=== PATIENT | female | born 1950 | race Caucasian/White ===

== ENCOUNTER 2018-09-30 17:57 | Inpatient (IN) | payer OTHER, BC ==
[~2018-09-30] VITALS: Ht 162.6 cm; Wt 54.0 kg
[2018-09-30 17:57] VITALS: BP_SYST 124
[~2018-09-30 17:57] MED LIST: CARB-61 GT; DEXT1CAP3 GT; DEXT1CAP3 PO; DIME25TA2 PO; DONE10TA44 GT; ESCI10TA GT; ESCI5SOL PO; ESOM20CA33 PO; ESOM40CA PO; HYDR473S49 PO; LACT-200 PO; LEVE1000 PO; OLAN2.5T29 PO; SCOP1PAT TD; SEPTRA DS PO
--- NOTE | 2018-09-30 17:57 | NUR ---
BROUGHT IN BY [facility] FROM [facility]. I CALLED TO [facility] TO GET REPORT, SPOKE WITH JUSTYN. PT PLACED IN BED #2 AND TRIAGED. PT IS NON-VERBAL. REPORT GIVEN TO SHAKA
--- NOTE | 2018-09-30 18:00 | NUR ---
Patient arrived by BLS from SNF. Patient c/c of pain to right lower extremity. Patient sustained fall on 09/25, right lower extremity deformity and swelling. Family originally declined to patient to be seen in ER, Fx tib/fib to right side. Family was okay with transfer.
--- NOTE | 2018-09-30 18:15 | NUR ---
ER at bedside examining patient.
[2018-09-30 19:00] LABS: BASOPHILS % (AUTO) 0.3 % (0.0-2.0); EOSINOPHILS # (AUTO) 0.1 K/uL (0.0-0.4); EOSINOPHILS % (AUTO) 1.5 % (0.0-4.0); HEMATOCRIT 31.5 % (36-48); HEMOGLOBIN 10.2 g/dL (12.0-16.0); LYMPHOCYTES # (AUTO) 1.3 K/uL (1.0-5.5); LYMPHOCYTES % (AUTO) 24.5 % (20.5-51.5); MEAN CORPUSCULAR HEMOGLOBIN 29 pg (27-31); MEAN CORPUSCULAR HGB CONC 32 % (32-36); MEAN CORPUSCULAR VOLUME 89 fL (79.0-98.0); MONOCYTES # (AUTO) 0.5 K/uL (0.0-1.0); MONOCYTES % (AUTO) 8.9 % (1.7-9.3); NEUTROPHILS # (AUTO) 3.5 K/uL (1.8-7.7); NEUTROPHILS % (AUTO) 64.8 % (40.0-70.0); PLATELET COUNT (AUTO) 217 K/uL (130-430); RED BLOOD CELL COUNT(AUTO) 3.55 MIL/uL (4.2-6.2); RED CELL DISTRIBUTION WIDTH 12.9 % (9.0-15.0); WHITE BLOOD COUNT (AUTO) 5.4 K/uL (4.8-10.8)
[2018-09-30 19:03] LABS: CALCIUM 8.8 mg/dL (8.4-11.0); CREATININE 0.52 mg/dL (0.55-1.30); POTASSIUM 3.7 mmol/L (3.5-5.1)
--- NOTE | 2018-09-30 19:09 | NUR ---
Endorsed care to VIDYA Jeronimo.
[2018-09-30 19:10] LABS: ALBUMIN 2.3 g/dL (3.4-4.8); TOTAL BILIRUBIN 0.6 mg/dL (0.0-1.0)
[2018-09-30] MEDS ORDERED: ACET-2165 GT (19:55)
[2018-09-30] MEDS ORDERED: DEXT1CAP3 GT (19:55)
[2018-09-30] MEDS ORDERED: DOCU250C14 GT (19:55)
--- NOTE | 2018-09-30 20:00 | NUR ---
Patient will be admitted to care of Dr Almaraz. Admitted to MS unit. Will go to room 113-B. Belongings list completed. Summary report printed. Report will be given at bedside. Transfer to [facility]. IV present no sign or symptom of infiltration.
--- NOTE | 2018-09-30 20:25 | NUR ---
Patient taken to floor in stable condition.
[2018-09-30 20:31] VITALS: BP_SYST 123
--- NOTE | 2018-09-30 20:31 | NUR ---
ADMISSION NOTE Received patient from ER via idania, received report from VIDYA VILLARREAL. Patient admitted with diagnosis of ACUTE FRACTURE OF RIGHT TIBIA. Patient oriented to hospital routine, call light, toileting and safety-patient verbalized understanding.
--- NOTE | 2018-09-30 20:31 | NUR ---
ADMIT NOTE Received pt from ER to the floor with a diagnosis of ACUTE FRACTURE OF RIGHT TIBIA. Admission process initiated. patient oriented to pain management, safety and call light-PT is non verbal, not following command done.
--- NOTE | 2018-09-30 22:28 | NUR ---
SKIN CARE PHOTOS Patient has impaired skin to right lower extremity and left upper extremity due to disease process. Photos were taken and will be mounted on wound care photographic wound forms.
[2018-09-30 23:45] VITALS: BP_SYST 130
[2018-10-01] MEDS ORDERED: HYDROcodone/ACETAMIN 5-325 MG TAB (NORCO/ VICODIN) PO PRN
[2018-10-01] MEDS ORDERED: levETIRAcetam 500 MG TABLET PO SCH ×2
[2018-10-01] MEDS ORDERED: ACETAMINOPHEN 325 MG TABLET GT PRN
[2018-10-01] MEDS ORDERED: COMMUNICATION ORDER XX ONE (00:30)
--- NOTE | 2018-10-01 00:37 | NUR ---
SPOKE TO DR. ALMARAZ Made aware to Dr. Almaraz that pt is on G-Tube. Dr. Almaraz ordered NPO and to start Jevity 1.2 at 238ml bolus 5 times a day. To start IVF D5 1/2 NS with 20mEq Potassium Chloride at 75ml/hr. To start Fisher Catheter and to use G-Tube as route for patient's PO medication. Read back orders and was confirmed by Dr. Almaraz.
--- NOTE | 2018-10-01 01:10 | NUR ---
BROWN INSERTION Inserted brown catheter and pt tolerated well. Noted yellow urine passing through the tube and UA was collected and sent to the lab.
--- NOTE | 2018-10-01 01:50 | NUR ---
G-TUBE FEEDING STARTED Bowel sounds are active. Started G-Tube feeding with Jevity 1.2 at 238ml bolus. Pt tolerated well with residual of 20ml. Aspiration precaution maintained. Will continue to monitor.
[2018-10-01] MEDS: KCL 20 mEq in D5/0.45NS 1000mL 1,000 ML IV SCH ×2 (01:53→17:22)
[2018-10-01] MEDS ORDERED: LevETIRAcetam 500 MG/5 ML UDC ORAL LIQUID GT SCH (02:15)
[2018-10-01] MEDS: CARBIDOPA/LEVODOPA 25/100 MG TABLET GT SCH ×5 (02:24→21:43)
[2018-10-01] MEDS ORDERED: levETIRAcetam 500 MG TABLET GT SCH ×2 (02:30→09:00)
[2018-10-01 02:33] LABS: BILIRUBIN,URINE NEGATIVE (NEGATIVE); BLOOD, URINE 3+ (NEGATIVE); CLARITY/URINE HAZY (CLEAR); COLOR,URINE YELLOW (YELLOW); GLUCOSE,URINE NEGATIVE (NEGATIVE); KETONES,URINE NEGATIVE (NEGATIVE); LEUKOCYTE ESTERASE ,URINE 1+ (NEGATIVE); NITRITE, URINE NEGATIVE (NEGATIVE); PH,URINE 7.5 (5.0-8.0); PROTEIN URINE 2+ (NEGATIVE)
[2018-10-01] MEDS ORDERED: levETIRAcetam 500 MG TABLET GT ONE (02:55)
[2018-10-01 02:56] LABS: RBC,URINE 20-50 /HPF (0-3)
[2018-10-01 02:59] LABS: BACTERIA,URINE MODERATE /HPF (None Seen)
[2018-10-01 03:03] LABS: MUCUS,URINE None Seen /LPF (None Seen); YEAST,URINE None Seen /HPF (None Seen)
--- NOTE | 2018-10-01 03:18 | NUR ---
CALLED [facility] () TO REQUEST FLU VACCINATION STATUS Spoke to MERCEDES Oconnor from [facility] ([phone]) who stated that that patient's medical records state she received the flu vaccine on August 21, 2018.
--- NOTE | 2018-10-01 06:20 | NUR ---
G-TUBE FEEDING Bowel sounds are active. Second bolus of G-Tube feeding of 238ml of Jevity 1.2 started. Pt tolerated well with residual of 10 ml. Aspiration precaution maintained. Will continue to monitor.
--- NOTE | 2018-10-01 07:00 | NUR ---
CLOSING NOTES Pt is resting with both eyes closed. With visible chest rise and fall noted. All care plans attended and safety precautions maintained throughout the shift. Will endorse to morning shift nurse.
[2018-10-01 08:00] VITALS: BP_SYST 142
--- NOTE | 2018-10-01 08:00 | NUR ---
Patient opens eyes. Appears contracted. IV site on right hand, #20. Has F/C, draining yellow urine. Heel protector on the left foot.
--- NOTE | 2018-10-01 08:28 | NUR ---
Nutrition Update Nick Scale 12 noted. Pt admitted for acute fracture of R tibia Diet: tube feeding BMI: 20.4 kg/m2 RD to follow per nutrition care standards.
[2018-10-01] MEDS ORDERED: ACETAMINOPHEN 650 MG/20.3 ML UDC GT PRN (08:32)
[2018-10-01] MEDS ORDERED: HYDROcodone/ACETAMIN 5-325 MG TAB (NORCO/ VICODIN) GT PRN (08:33)
[2018-10-01] MEDS: CITALOPRAM HYDROBROMIDE 20 MG TABLET GT SCH (08:51)
[2018-10-01] MEDS: DOCUSATE SODIUM 100 MG/10 ML UDC GT SCH (08:51)
[2018-10-01] MEDS ORDERED: DOCUSATE SODIUM 100 MG CAPSULE PO SCH (09:00)
--- NOTE | 2018-10-01 10:10 | NUR ---
NEW IV IS INSERTED AT RIGHT FA, #20, INTACT AND PATENT.
[2018-10-01 12:06] VITALS: BP_SYST 142
--- NOTE | 2018-10-01 12:22 | NUR ---
PATIENT IS RESTING, NO SIGNS OF DISTRESS NOTED.
--- NOTE | 2018-10-01 13:49 | NUR ---
Dietitian Recommendations *Recommend Jevity 1.2 at 50ml/hr, FWF 110ml q 6h via GT. Provides: 1440 kcal, 67 gm protein and 1408 ml free water. Meets: 89% of upper end of estimated calorie needs and 96% of upper end of estimated protein needs. Please see Nutritional Assessment for details. CORRECTION, RD
--- NOTE | 2018-10-01 16:00 | NUR ---
PATIENT IS TURNED AND REPOSITIONED FOR COMFORT. PEDAL PULSES AND CAP REFILLS ARE CHECKED.
[2018-10-01 16:02] VITALS: BP_SYST 130
--- NOTE | 2018-10-01 18:20 | NUR ---
Patient is at rest, with Gtube feeding running at 50ml/hr. No signs of distress noted.
[2018-10-01 20:00] VITALS: BP_SYST 132
--- NOTE | 2018-10-01 20:01 | NUR ---
OPENING NOTES/ESPINOSA REINSERTION Pt and endorsement received from morning shift nurse. Pt is non-verbal, awake and lying in bed. Incontinence care being provided by SALES VICE PRESIDENT. Pt's chux pad is soiled with yellow urine. Espinosa catheter was out. Espinosa catheter reinsertion done, with cloudy yellow urine noted. Positioned pt in high fowlers to maintain aspiration precautions. Bed locked and in lowest position, 3 bed side rails up and close to nurse's station. Will continue to monitor.
[2018-10-01] MEDS: LevETIRAcetam 500 MG/5 ML UDC ORAL LIQUID GT SCH (21:43)
[2018-10-01] MEDS: DONEPEZIL HCL 5 MG TABLET (ARICEPT) GT SCH (21:46)
--- NOTE | 2018-10-01 21:53 | NUR ---
MEDS GIVEN Checked residual and is less than 10ml. Bowel sounds active upon auscultation. Medications given and flushed with 110ml of sterile water. Pt tolerated well and continued G-Tube feeding at a rate of 50ml/hr. Safety precautions in place. Will continue to monitor.
[2018-10-02 00:15] VITALS: BP_SYST 124
--- NOTE | 2018-10-02 00:40 | NUR ---
RESTING Pt is resting in bed with both eyes closed. With visible chest rise and fall noted. No signs of acute distress or shortness of breath noted. Head elevated at 30 degrees and safety precautions in place. Will continue to monitor.
--- NOTE | 2018-10-02 02:00 | NUR ---
G-TUBE FEEDING REPLACED Pt's G-tube feeding was completed. Residual at 0ml, assessed for bowel sounds and is active. Flushed with 110ml of sterile water. Started new G-Tube Feeding of Jevity 1.2 at 50ml/hr and is infusing well. Aspiration precaution maintained, head elevated at 30 degrees and safety precautions maintained. Will continue to monitor.
--- NOTE | 2018-10-02 03:01 | NUR ---
SALINE LOCK REMOVED Pt's saline lock on right wrist, gauge 22, is infiltrated. Flush with saline water but with resistance. Removed IV and applied pressure and covered with gauze. Head maintained elevated at 30 degrees and safety precautions in place. Will continue to monitor.
[2018-10-02] MEDS: KCL 20 mEq in D5/0.45NS 1000mL 1,000 ML IV SCH ×2 (03:25→17:38)
--- NOTE | 2018-10-02 07:00 | NUR ---
CLOSING NOTES Pt is awake and lying in bed. No signs of acute distress at the moment. All needs attended and safety precautions maintained throughout the shift. Head elevated and maintained at 30 degrees. Will endorse to morning shift nurse.
[2018-10-02 08:00] VITALS: BP_SYST 153
--- NOTE | 2018-10-02 08:00 | NUR ---
Note Pt resting in bed - contracted and position. IV in right hand intact and patent infusing IVF's at this time. No SOB/resp distress or pain/discomfort noted at this time. GT feedings infusing well. Fisher catheter intact and draining well. Pt next to nurses' station for close observation and care. Call light within reach. Pt non-verbal.
[2018-10-02] MEDS: DOCUSATE SODIUM 100 MG/10 ML UDC GT SCH (09:44)
[2018-10-02] MEDS: CARBIDOPA/LEVODOPA 25/100 MG TABLET GT SCH ×4 (09:45→21:10)
[2018-10-02] MEDS: CITALOPRAM HYDROBROMIDE 20 MG TABLET GT SCH (09:45)
[2018-10-02] MEDS: LevETIRAcetam 500 MG/5 ML UDC ORAL LIQUID GT SCH ×2 (09:47→21:10)
--- NOTE | 2018-10-02 10:00 | NUR ---
Note Dr Helton on the floor at bedside doing assessment. Orders written at this time. Call light within reach.
[2018-10-02 10:48] VITALS: BP_SYST 155
--- NOTE | 2018-10-02 12:45 | NUR ---
Note Pt resting in bed - turned q2' and PRN for needs and care. No needs noted at this time. GT feedings infusing well. Call light within reach.
--- NOTE | 2018-10-02 12:50 | NUR ---
Pt's son - Puneet Pt's son Puneet called and stated that having spoken to his father and other siblings, they have decided not to do surgery and have their mother (the pt/) transferred back to [place] at this time. clip loading machine adjuster Diana notified at this time.
--- NOTE | 2018-10-02 14:45 | NUR ---
Note Pt resting in bed with GT feedings and IVF's infusing well at this time. No needs noted. Call light within reach.
--- NOTE | 2018-10-02 15:10 | NUR ---
NOTE Dr Helton was called and notified that family wants no surgery or any treatment done at this time. Family wants pt transferred back to [place]. Family was notified that Dr Helton ordered a brace for right ankle that will be measured and fitted tomorrow or the next day, either here or at [place]. Family is okay with that. Addendum: 10/02/18 at 1519 by Gena Nieves RN [facility] to be called 10/03/18
--- NOTE | 2018-10-02 15:20 | NUR ---
Note Dr Almaraz was notified that pt's son and other siblings in addition to pt's want nothing done for pt (surgery or other treatment) at this time. Want pt transferred back to [place] as soon as possible. Dr Almaraz will see pt today and will write orders.
[2018-10-02 16:59] VITALS: BP_SYST 104
--- NOTE | 2018-10-02 18:10 | NUR ---
Note Pt has been assisted in turning q2' and PRN all shift for needs and care. IV in right hand intact and patent infusing IVF's all shift. GT feedings infusing well and minimal residue. Pt checked on q1' and PRN all shift. Pt maintained with safety precautions all shift. No SOB/resp distress or pain/discomfort noted at this time. No needs noted. Call light within reach. Pt stable at this time.
--- NOTE | 2018-10-02 18:21 | NUR ---
Pt on the floor doing assessments and rounds at this time.
--- NOTE | 2018-10-02 19:25 | NUR ---
OPENING NOTES RECEIVED PATIENT IN BED AWAKE NONVERBAL. FAMILY AT BEDSIDE. BREATHING UNLABORED ON ROOM AIR. GT FEEDING AND IVF INFUSING ORDERED. VITAL SIGNS STABLE. CALL LIGHT WITHIN REACH. BED ALARM ON. SIDERAILS WITH PADS AND RAILS UPX3.
[2018-10-02 19:53] VITALS: BP_SYST 140
[2018-10-02] MEDS: DONEPEZIL HCL 5 MG TABLET (ARICEPT) GT SCH (21:11)
--- NOTE | 2018-10-02 21:11 | NUR ---
MED PASS DUE MEDICATIONS GIVEN VIA GT. GT FEEDING TOLERATED. NO RESIDUAL OBTAINED. HOB ELEVATED 30 DEGREES.
--- NOTE | 2018-10-02 22:15 | NUR ---
INCONTINENCE CARE INCONTINENCE CARE DONE BY WAX COATING MACHINE TENDER. PATIENT HAD BM. ALL LINENS CHANGED.
[2018-10-03 00:10] VITALS: BP_SYST 133
--- NOTE | 2018-10-03 00:30 | NUR ---
ROUNDS PATIENT RESTING IN BED. BREATHING UNLABORED. GT FEEDING AND IVF INFUSING. VITAL SIGNS STABLE. BED ALARM ON. CALL LIGHT WITHIN REACH.
--- NOTE | 2018-10-03 03:30 | NUR ---
ROUNDS PATIENT RESTING IN BED. NO DISTRESS NOTED. IVF AND GT FEEDING INFUSING. BED ALARM ON.
--- NOTE | 2018-10-03 05:07 | NUR ---
GT CARE AM CARE DONE. GT DRESSING CHANGED. INSERTED NEW IV LINE TO LEFT HAND G#22 WITH GOOD BLOOD RETURN. REMOVED OLD IV LINE TO RFA RED AND SWOLLEN.
--- NOTE | 2018-10-03 06:37 | NUR ---
CLOSING NOTES PATIENT AWAKE. BREATHING UNLABORED ON ROOM AIR. GT FEEDING TOLERATED. NO RESIDUAL OBTAINED. NEEDS ATTENDED. CALL LIGHT WITHIN REACH. SIDERAILS WITH PADS AND UP X2. BED ALARM ON. BED IN LOWEST LOCKED POSITION.
[2018-10-03 08:00] VITALS: BP_SYST 139
--- NOTE | 2018-10-03 08:00 | NUR ---
Note Pt resting in bed with IVF's infusing well through left hand IV site. GT feedings infusing well at this time. No SOB/resp distress or pain/discomfort noted at this time. Fisher catheter intact and draining well at this time. Call light within reach. Pt next to nurses' station for close observation.
[2018-10-03] MEDS: KCL 20 mEq in D5/0.45NS 1000mL 1,000 ML IV SCH (09:54)
[2018-10-03] MEDS: CARBIDOPA/LEVODOPA 25/100 MG TABLET GT SCH ×3 (09:54→17:41)
[2018-10-03] MEDS: CITALOPRAM HYDROBROMIDE 20 MG TABLET GT SCH (09:54)
[2018-10-03] MEDS: DOCUSATE SODIUM 100 MG/10 ML UDC GT SCH (09:54)
[2018-10-03] MEDS: LevETIRAcetam 500 MG/5 ML UDC ORAL LIQUID GT SCH (09:55)
--- NOTE | 2018-10-03 10:10 | NUR ---
Note Dr Helton on the floor and assessment done and completed at this time. Pt resting at this time. No needs noted at this time.
--- NOTE | 2018-10-03 12:00 | NUR ---
Note [facility] was called at 0821am and 1015am, spoke to Yohana about pt's right ankle brace and what time to expect customer relations representative for fitting as pt to be discharged back to [place] once measurement of ankle was done. No exact time was given at this time. Pt's son Puneet called and informed son that Dr Helton did come to see pt and [facility] would be here today to take his mother's (pt) right ankle measurement. Pt resting in bed. No needs noted. Call light within reach.
[2018-10-03 12:02] VITALS: BP_SYST 104
--- NOTE | 2018-10-03 14:05 | NUR ---
Note Pt stable and resting in bed. No insurance healthcare representative from [facility] on the floor yet. No needs noted. Call light within reach.
[2018-10-03 16:02] VITALS: BP_SYST 139
--- NOTE | 2018-10-03 16:29 | NUR ---
Discharge Planning: DCP faxed pt referral to [place] (f [phone] p [phone]); pt returning nurse to get DC order from doctor. DCP arranged transportation with [facility] ([phone]) Addendum: 10/03/18 at 1638 by Rosalie Dey DP DCP faxed order to [facility] F [phone] p [phone]): Todd will be in to measure for brace.
--- NOTE | 2018-10-03 18:00 | NUR ---
Note Pt's son was at bedside since 1600. At 1645 Stefan jake [facility] fitted pt with right ankle brace for stabilization. Dr Ferguson was called and notified that pt has brace and family requesting pt be transferred back to [place]. Verbal order to dc pt back to [place] was received. oncology transplant network manager notified and discharge packet made ready. Pt's Fisher catheter was dc'd and IVF's were stopped and IV was dc'd - site benign and no bleeding/swelling/drainage or tenderness at site noted at this time. GT feedings stopped and GT clamped at this time. Report was given to Farzana DASILVA at [place] 1652. [facility] was called and pickup will be at 1900. Pt's son was notified and aware at this time. Pt's left soft heel protector was taken by pt's son when he left the floor at 1700. Pt dressed in orange gown and sheet. Adult brief applied and Fisher catheter was dc'd at 1700. Call light within reach.
[2018-10-03 18:13] VITALS: BP_SYST 135
--- NOTE | 2018-10-03 19:50 | NUR ---
Note [facility] at bedside to transport pt to [place] at this time via gurney. EMT given discharge packet to give to [facility]. Pt stable. No SOB/resp distress or pain/discomfort at this time. Pt's son Puneet called and notified of pt leaving the hospital at this time. Addendum: 10/03/18 at 1953 by Gena Nieves RN Called Farzana DASILVA to notify pt leaving floor and going to [place] at this time. Pt will be going to 112.
== END 2018-10-03 19:57 | DRG 563 ==
LOC: SED 17:57 → SMU 19:59
PROVIDERS: ADMIT Family Medicine; ATTEND Family Medicine
DX: S82.871A Displaced pilon fracture of right tibia, initial encounter for closed fracture (principal); E44.1 Mild protein-calorie malnutrition; S82.831A Other fracture of upper and lower end of right fibula, initial encounter for closed fracture; M81.0 Age-related osteoporosis without current pathological fracture; G40.909 Epilepsy, unspecified, not intractable, without status epilepticus; G20 Parkinson's disease; F32.9 Major depressive disorder, single episode, unspecified; D64.9 Anemia, unspecified; M24.561 Contracture, right knee; F02.80 Dementia in other diseases classified elsewhere, unspecified severity, without behavioral disturbance, psychotic disturbance, mood disturbance, and anxiety; W18.39XA Other fall on same level, initial encounter; Y93.89 Activity, other specified; Y92.89 Other specified places as the place of occurrence of the external cause; Y99.8 Other external cause status; Z79.899 Other long term (current) drug therapy
CPT/HCPCS: 36415; 73060-TC; 73590-TC; 80053; 81000-TC; 85025; 85610-TC; 87081; 87086; 99285

== ENCOUNTER 2019-08-31 16:07 | Emergency (ER) | payer OTHER, BC ==
[~2019-08-31] VITALS: Ht 154.9 cm; Wt 62.6 kg
[~2019-08-31 16:07] MED LIST changes: +ACET-2165 GT; -DEXT1CAP3 PO; -DIME25TA2 PO; +DOCU250C14 GT; -ESCI5SOL PO; -ESOM20CA33 PO; -ESOM40CA PO; -HYDR473S49 PO; -LACT-200 PO; -OLAN2.5T29 PO; -SCOP1PAT TD; -SEPTRA DS PO
[2019-08-31 16:10] VITALS: BP_SYST 136
--- NOTE | 2019-08-31 16:12 | NUR ---
Patient to ER bed H1 to gown for evaluation. Side rails up.
--- NOTE | 2019-08-31 16:13 | NUR ---
Pt brought by ambulance, Alert x1, pt presents to ER for G-tube replacement , pt arrived with a catheter on G-tube site , afebrile , pt arrived on 2L NC , per ppwk pt used O2 as needed, skin pink and warm, cap refill <3.
--- NOTE | 2019-08-31 16:15 | NUR ---
Dr Thompson at bedside examining patient
--- NOTE | 2019-08-31 16:16 | NUR ---
Dr Thompson replacing G-tube at this time, well tolerated
[2019-08-31] MEDS ORDERED: GASTROGRAFIN 120 ML ONE (16:45)
[2019-08-31 17:09] VITALS: BP_SYST 132
--- NOTE | 2019-08-31 17:12 | NUR ---
Patient and EMS given written and verbal discharge instructions and verbalizes understanding. ER MD discussed with patient and EMS the results and treatment provided. Patient in stable condition. ID arm band removed. No Rx given. Patient educated on pain management and to follow up with PMD. Pain Scale 2/10 tolerable for patient . Opportunity for questions provided and answered. Medication side effect fact sheet provided.
== END 2019-08-31 17:12 | disposition home or self-care (01) ==
LOC: SED 16:07
DX: Z43.1 Encounter for attention to gastrostomy (principal); F03.90 Unspecified dementia, unspecified severity, without behavioral disturbance, psychotic disturbance, mood disturbance, and anxiety; F32.9 Major depressive disorder, single episode, unspecified; G20 Parkinson's disease; Z79.899 Other long term (current) drug therapy
CPT/HCPCS: 43762; 74240; 99284; Q9963

== ENCOUNTER 2021-12-28 16:40 | Inpatient (IN) | payer OTHER, BC, SELFPAY ==
[~2021-12-28] VITALS: Ht 157.5 cm; Wt 49.6 kg
[2021-12-28 16:40] VITALS: BP_SYST 145
[~2021-12-28 16:40] MED LIST changes: -ACET-2165 GT; +ACET325T GT
[2021-12-28] MEDS ORDERED: MORPHINE 4 MG INJ. 4 MG/ML VIAL IVP ONE (17:15)
[2021-12-28] MEDS ORDERED: ONDANSETRON HCL 4 MG/2 ML VIAL ONE (17:17)
[2021-12-28 17:24] LABS: HEMATOCRIT 39.2 % (36-48); HEMOGLOBIN 12.6 g/dL (12.0-16.0); MEAN CORPUSCULAR HEMOGLOBIN 27 pg (27-31); MEAN CORPUSCULAR HGB CONC 32 % (32-36); MEAN CORPUSCULAR VOLUME 85 fL (79.0-98.0); PLATELET COUNT (AUTO) 433 K/uL (130-430); RED BLOOD CELL COUNT(AUTO) 4.63 MIL/uL (4.2-6.2); RED CELL DISTRIBUTION WIDTH 14.4 % (9.0-15.0); WHITE BLOOD COUNT (AUTO) 18.1 K/uL (4.8-10.8)
[2021-12-28] MEDS ORDERED: ACETAMINOPHEN 650 MG SUPP.RECT RC ONE ×2 (17:27→17:30)
[2021-12-28] MEDS ORDERED: NACL 0.9% 1,000 ML IV ONE (17:30)
[2021-12-28 17:36] LABS: ANION GAP 12 (5-15); CALCIUM 8.7 mg/dL (8.4-11.0); CHLORIDE 104 mmol/L (98-107); CREATININE 0.95 mg/dL (0.55-1.30); GLUCOSE 168 mg/dL (70-99); POTASSIUM 4.3 mmol/L (3.5-5.1); SODIUM SERUM 142 mmol/L (136-145); UREA NITROGEN, BLOOD 26 mg/dL (8-21)
[2021-12-28 17:44] LABS: BILIRUBIN,URINE 1+ (NEGATIVE); BLOOD, URINE 3+ (NEGATIVE); CLARITY/URINE TURBID (CLEAR); COLOR,URINE BROWN (YELLOW); GLUCOSE,URINE NEGATIVE (NEGATIVE); KETONES,URINE TRACE (NEGATIVE); LEUKOCYTE ESTERASE ,URINE 3+ (NEGATIVE); NITRITE, URINE NEGATIVE (NEGATIVE); PH,URINE 5.5 (5.0-8.0); PROTEIN URINE 2+ (NEGATIVE)
[2021-12-28 17:45] LABS: ALANINE AMINOTRANSFERASE 8 U/L (12-78); ALBUMIN 2.7 g/dL (3.4-4.8); ASPARTATE AMINOTRANSFERASE 22 U/L (10-37); TOTAL BILIRUBIN 0.4 mg/dL (0.0-1.0)
[2021-12-28 18:02] LABS: BAND % (MANUAL) 14 % (0-6); BASOPHILS % (MANUAL) 0 % (0-2); EOSINOPHILS % (MANUAL) 0 % (0-7); LYMPHOCYTES % (MANUAL) 4 % (20-46); MONOCYTES % (MANUAL) 1 % (0-11)
[2021-12-28 18:04] LABS: BACTERIA,URINE MANY /HPF (None Seen); RBC,URINE >100 /HPF (0-3); WBC,URINE 50-80 /HPF (0-3)
[2021-12-28 18:05] LABS: URINE AMORPHOUS URATE 3+ /HPF (None Seen)
[2021-12-28] MEDS ORDERED: NALOXONE HCL 0.4 MG/ML AMP (NARCAN) IVP PRN (18:15)
[2021-12-28] MEDS ORDERED: MORPHINE SULFATE IN 0.9 % NACL 100 ML IV PRN (18:15)
[2021-12-28] MEDS ORDERED: MORPHINE SULFATE IN 0.9 % NACL 100 ML IV ONE (18:19)
[2021-12-29] MEDS ORDERED: MORPHINE SULFATE IN 0.9 % NACL 100 ML IV PRN (00:15)
[2021-12-29] MEDS ORDERED: MORPHINE SULFATE IN 0.9 % NACL 100 ML IV ONE ×4 (00:40→18:58)
[2021-12-29] MEDS: MORPHINE SULFATE IN 0.9 % NACL 100 ML IV PRN ×5 (01:22→19:10)
[2021-12-29 02:32] VITALS: BP_SYST 96
[2021-12-29] MEDS ORDERED: MORPHINE SULFATE 10 MG/ML VIAL ONE ×2 (05:58→06:01)
[2021-12-29 08:05] VITALS: BP_SYST 69
[2021-12-29 11:30] VITALS: BP_SYST 88
[2021-12-29 16:12] VITALS: BP_SYST 89
[2021-12-29 20:00] VITALS: BP_SYST 88
[2021-12-30] MEDS ORDERED: MORPHINE SULFATE 10 MG/ML VIAL ONE (00:11)
[2021-12-30 00:34] VITALS: BP_SYST 107
[2021-12-30] MEDS ORDERED: MORPHINE SULFATE IN 0.9 % NACL 100 ML IV ONE ×2 (01:02→05:22)
[2021-12-30] MEDS: MORPHINE SULFATE IN 0.9 % NACL 100 ML IV PRN ×5 (01:06→20:23)
[2021-12-30 04:00] VITALS: BP_SYST 89
[2021-12-30 11:30] VITALS: BP_SYST 87
[2021-12-30 16:04] VITALS: BP_SYST 87
[2021-12-30 20:00] VITALS: BP_SYST 99
[2021-12-31] MEDS: MORPHINE SULFATE IN 0.9 % NACL 100 ML IV PRN ×5 (01:01→19:46)
[2021-12-31 01:12] VITALS: BP_SYST 107
[2021-12-31 06:48] VITALS: BP_SYST 119
[2021-12-31 08:00] VITALS: BP_SYST 110
[2021-12-31 12:32] VITALS: BP_SYST 115
[2021-12-31 17:34] VITALS: BP_SYST 110
[2022-01-01 00:45] VITALS: BP_SYST 111
[2022-01-01 00:53] VITALS: BP_SYST 111
[2022-01-01 08:15] VITALS: BP_SYST 121
[2022-01-01 12:00] VITALS: BP_SYST 118
[2022-01-01 13:18] VITALS: BP_SYST 124; BP_SYST 132
== END 2022-01-01 14:30 | disposition hospice, home (50) | DRG 871 ==
LOC: SED 16:40 → SMU 18:08
DX: A41.9 Sepsis, unspecified organism (principal); R65.21 Severe sepsis with septic shock; E43 Unspecified severe protein-calorie malnutrition; N39.0 Urinary tract infection, site not specified; Z20.822 Contact with and (suspected) exposure to COVID-19; Z66 Do not resuscitate; G20 Parkinson's disease; G30.9 Alzheimer's disease, unspecified; F02.80 Dementia in other diseases classified elsewhere, unspecified severity, without behavioral disturbance, psychotic disturbance, mood disturbance, and anxiety; F32.9 Major depressive disorder, single episode, unspecified; G40.909 Epilepsy, unspecified, not intractable, without status epilepticus; R62.7 Adult failure to thrive; E86.0 Dehydration; K59.00 Constipation, unspecified; Z68.20 Body mass index [BMI] 20.0-20.9, adult; Z79.899 Other long term (current) drug therapy; Z74.01 Bed confinement status
CPT/HCPCS: 36415; 71045; 80053; 81000; 83605; 84484; 85007; 85027; 87040; 87086; 87186-TC; 96361; 96374; 99291; J2270; J2405